=== PATIENT | male | born 1955 | race Caucasian/White ===

== ENCOUNTER 2016-11-01 05:56 | Emergency (ER) | payer MEDICAID ==
[2016-11-01 06:22] LABS: APPEARANCE CLEAR (CLEAR); BILIRUBIN NEGATIVE (NEGATIVE); COLOR YELLOW (YELLOW); GLUCOSE NEGATIVE (NEGATIVE); KETONE NEGATIVE (NEGATIVE); LEUKOCYTE ESTERASE NEGATIVE (NEGATIVE); NITRITE NEGATIVE (NEGATIVE); PROTEIN NEGATIVE (NEGATIVE); UROBILINOGEN NORMAL (NORMAL)
[2016-11-01 06:49] LABS: BASOPHILS 0.2 % (0-2); EOSINOPHILS 1.3 % (0-7); HEMATOCRIT 45.8 % (42.0-54.0); HEMOGLOBIN 15.5 g/dL (13.5-17.5); IMMATURE GRANULOCYTES 0.2 % (0-5); LYMPHOCYTES 23.7 % (15-50); MCH 31.6 pg (26.0-34.0); MCHC 33.8 g/dL (31.0-37.0); MCV 93.3 fL (80.0-100.0); MONOCYTES 8.5 % (2-11); NEUTROPHILS 66.1 % (40-80); PLATELET COUNT 97 10x3/uL (130-400); RBC 4.91 10x6/uL (4.20-6.10); RDW 12.9 % (11.5-14.5); WBC 5.5 10x3/uL (4.8-10.8)
[2016-11-01 07:08] LABS: ALBUMIN 3.6 g/dL (3.4-5.0); ALKALINE PHOSPHATASE 94 U/L (46-116); ALT (SGPT) 20 U/L (10-68); CALC OSMOLALITY 285 mosm/kg (275-300); CALCIUM 8.7 mg/dL (8.5-10.1); CARBON DIOXIDE 28.1 mmol/L (21.0-32.0); CHLORIDE - SERUM 104 mmol/L (98-107); CREATININE - SERUM 0.9 mg/dL (0.6-1.3); GLUCOSE 129 mg/dL (74-106); POTASSIUM - SERUM 3.8 mmol/L (3.5-5.1); SODIUM 141 mmol/L (136-145); UREA NITROGEN 22 mg/dL (7-18); eGFR NON AFRICAN AMERICAN > 90 mL/min (90-120)
[2016-11-01 07:20] LABS: CKMB 0.7 U/L (0.0-3.6); CREATINE KINASE 119 UL (21-232); TROPONIN-I < 0.017 ng/mL (0.000-0.060)
[2016-11-01 07:24] LABS: PLATELET ESTIMATE DECREASED
== END 2016-11-01 08:31 | disposition home or self-care (01) ==
LOC: D.ER 05:56
PROVIDERS: Family Medicine
DX: R42 Dizziness and giddiness (principal); I44.0 Atrioventricular block, first degree; I45.4 Nonspecific intraventricular block

== ENCOUNTER 2019-05-02 04:01 | Emergency (ER) | payer MEDICAID ==
[~2019-05-02] VITALS: Ht 180.3 cm; Wt 164.7 kg
[2019-05-02 04:07] VITALS: Ht 180.3 cm; Wt 164.7 kg
[2019-05-02] MEDS ORDERED: FAMOTIDINE10 MG PO (04:09)
[2019-05-02] MEDS ORDERED: TESSALON PERLE100 MG PO (04:09)
[2019-05-02] MEDS ORDERED: CARAFATE1 G PO (04:10)
[2019-05-02] MEDS ORDERED: FLUTICASONE PRO16 GM NASAL (04:41)
[2019-05-02] MEDS ORDERED: CLEOCIN HCL300 MG PO (04:41)
[2019-05-02 04:59] VITALS: BP 158/91
== END 2019-05-02 04:59 | disposition home or self-care (01) ==
LOC: D.ER 04:01
DX: J01.90 Acute sinusitis, unspecified (principal); R06.00 Dyspnea, unspecified; I10 Essential (primary) hypertension